=== PATIENT | male | born 1965 | race African-American/Black ===

== ENCOUNTER 2019-12-20 02:21 | Emergency (ER) | payer OTHER, BC ==
[~2019-12-20] VITALS: Ht 185.4 cm; Wt 138.0 kg
[2019-12-20 04:21] LABS: EOSINOPHILS % 0.1 % (0.0-5.0); HEMATOCRIT. 41.7 % (42.0-52.0); HEMOGLOBIN. 13.8 g/dL (14.0-18.0); LYMPHOCYTES % 8.8 % (20.0-50.0); MEAN CORPUSCULAR VOLUME 99.6 fL (80.0-94.0); MEAN PLATELET VOLUME 8.2 fl (7.4-10.4); MONOCYTES % 3.1 % (2.0-8.0); PLATELET 167 x1000/uL (130-400); RED BLOOD CELL COUNT 4.19 mill/uL (4.7-6.1); RED CELL DISTRIBUTION WIDTH 19.4 % (11.6-14.6)
[2019-12-20 04:22] LABS: CHLORIDE 107 mEq/L (98-107)
[2019-12-20 04:26] LABS: INR 1.1; PROTHROMBIN TIME 11.6 sec (9.6-11.0)
[2019-12-20 04:27] LABS: ETHANOL BLOOD < 10 mg/dL
[2019-12-20] MEDS ORDERED: ASPIRIN 325MG EC TABLET PO NR (05:00)
[2019-12-20] MEDS ORDERED: SODIUM CHLORIDE 0.9% 1,000 ML IV NR (05:00)
[2019-12-20 07:27] VITALS: BP 160/99
== END 2019-12-20 07:42 | disposition short-term general hospital (02) ==
LOC: ER 02:43 → CANBEDREQ 05:36 → ER 07:42
DX: R77.8 Other specified abnormalities of plasma proteins (principal); I49.9 Cardiac arrhythmia, unspecified
CPT/HCPCS: 36415; 71045; 80053; 80320; 83605; 83880; 84145; 84484; 85025; 93005; 99285; G0480

== ENCOUNTER 2020-01-06 16:56 | Inpatient (IN) | payer OTHER, BC ==
[~2020-01-06] VITALS: Ht 185.4 cm; Wt 139.3 kg
[2020-01-06] MEDS ORDERED: DILTIAZEM HCL 5MG/ML 5ML VIAL IV ONE (19:45)
[2020-01-06 20:36] LABS: CHLORIDE 108 mEq/L (98-107); HEMATOCRIT. 41.4 % (42.0-52.0); HEMOGLOBIN. 13.5 g/dL (14.0-18.0); MEAN CORPUSCULAR HEMOGLOBIN 32.2 pg (28.0-32.0); MEAN CORPUSCULAR VOLUME 98.7 fL (80.0-94.0); MEAN PLATELET VOLUME 8.1 fl (7.4-10.4); PLATELET 184 x1000/uL (130-400)
[2020-01-06] MEDS ORDERED: IOHEXOL-350 100 ML BOTTLE ONE (20:55)
[2020-01-06 21:02] LABS: NUCLEATED RED BLOOD CELLS 3 /100 WBC; PLATELET ESTIMATE NORMAL
[2020-01-06] MEDS ORDERED: ONDANSETRON HCL 4MG/2ML INJ IV STA (21:41)
[2020-01-06] MEDS ORDERED: MORPHINE SULFATE 4 MG/ML CPJ (NOT FOR IM USE) IV STA (21:41)
[2020-01-06] MEDS ORDERED: ASPIRIN 325MG EC TABLET PO ONE (21:45)
[2020-01-06] MEDS ORDERED: PIPERACILLIN/TAZ 3.375G PREMIX 50 ML IV NR (22:00)
[2020-01-06] MEDS ORDERED: VANCOMYCIN 1 G PREMIX 200 ML IV NR (22:00)
[2020-01-07] VITALS (10 sets, daily range): BP systolic 113–171; BP diastolic 64–125
[2020-01-07] MEDS: METOPROLOL TARTRATE 5MG/5ML VIAL IV SCH ×3 (04:12→04:59)
[2020-01-07] MEDS ORDERED: LORAZEPAM 2MG/ML CPJ IV PRN (07:00)
[2020-01-07] MEDS ORDERED: IPRATROPIUM/ALBUTEROL 0.5-3(2.5)MG/3ML NEB NEB PRN (07:00)
[2020-01-07] MEDS ORDERED: MORPHINE SULFATE 2 MG/ML CPJ (NOT FOR IM USE) IV PRN (07:00)
[2020-01-07] MEDS ORDERED: ONDANSETRON HCL 4MG/2ML INJ IV PRN (07:00)
[2020-01-07] MEDS ORDERED: CEFTRIAXONE 1 G PREMIX 50 ML IV SCH (08:00)
[2020-01-07] MEDS ORDERED: DILTIAZEM HCL 30MG TABLET PO SCH ×2 (08:00→14:00)
[2020-01-07] MEDS ORDERED: AZITHROMYCIN 500 MG TABLET PO NR (08:00)
[2020-01-07] MEDS ORDERED: FURO-151 MT (08:03)
[2020-01-07] MEDS ORDERED: P20 MT (08:03)
[2020-01-07] MEDS ORDERED: GLIP5TAB12 MT (08:03)
[2020-01-07] MEDS ORDERED: DABI75CA3 MT (08:04)
[2020-01-07] MEDS ORDERED: KCL 10MEQ/50ML PREMIX 50 ML IV NR (08:30)
[2020-01-07] MEDS ORDERED: ENOXAPARIN 30MG/0.3ML SYR SUBCUT SCH (09:00)
[2020-01-07] MEDS ORDERED: ASPIRIN 81MG EC TABLET PO SCH (09:00)
[2020-01-07] MEDS: THIAMINE HCL 100MG TABLET PO SCH (09:09)
[2020-01-07] MEDS: ENOXAPARIN 150MG/ML SYR SUBCUT SCH ×2 (09:11→21:05)
[2020-01-07] MEDS ORDERED: METOPROLOL TARTRATE 5MG/5ML VIAL IV PRN (10:00)
[2020-01-07] MEDS ORDERED: DILTIAZEM HCL 30MG TABLET PO NR (10:15)
[2020-01-07] MEDS: FUROSEMIDE 40MG/4ML VIAL IVP SCH ×2 (10:24→17:12)
[2020-01-07] MEDS: CEFTRIAXONE 1,000 MG in DEXTROSE 5% WATER 50 ML IV SCH (11:20)
[2020-01-07 11:51] LABS: HEMATOCRIT. 37.1 % (42.0-52.0); HEMOGLOBIN. 12.3 g/dL (14.0-18.0); MEAN CORPUSCULAR HEMOGLOBIN 32.3 pg (28.0-32.0); MEAN CORPUSCULAR VOLUME 97.4 fL (80.0-94.0); PLATELET 171 x1000/uL (130-400); RED BLOOD CELL COUNT 3.81 mill/uL (4.7-6.1); RED CELL DISTRIBUTION WIDTH 18.6 % (11.6-14.6)
[2020-01-07 12:11] LABS: CHLORIDE 108 mEq/L (98-107)
[2020-01-07 13:44] LABS: CLARITY URINE CLEAR (CLEAR); COLOR URINE YELLOW (YELLOW); KETONES URINE NEGATIVE (NEGATIVE); LEUKOCYTE ESTERASE URINE NEGATIVE (NEGATIVE); NITRITE URINE NEGATIVE (NEGATIVE); OCCULT BLOOD URINE TRACE (NEGATIVE); PROTEIN URINE NEGATIVE (NEGATIVE); SPECIFIC GRAVITY URINE 1.014 (1.005-1.030); UROBILINOGEN URINE 0.2 E.U./dL (0.2-1.0)
[2020-01-07 14:18] LABS: *AMPHETAMINES SCREEN URINE NEGATIVE (NEGATIVE)
[2020-01-07 14:19] LABS: *BARBITURATES SCREEN URINE NEGATIVE (NEGATIVE); *BENZODIAZEPINES SCREEN URINE NEGATIVE (NEGATIVE); *COCAINE SCREEN URINE NEGATIVE (NEGATIVE); CANNABINOID URINE SCREEN NEGATIVE (NEGATIVE); METHADONE URINE SCREEN NEGATIVE (NEGATIVE); OPIATES URINE SCREEN NEGATIVE (NEGATIVE); PHENCYCLIDINE URINE SCREEN NEGATIVE (NEGATIVE)
[2020-01-07] MEDS: DILTIAZEM HCL 60MG TABLET PO SCH ×2 (15:48→17:13)
[2020-01-07] MEDS: HYDROCODONE/ACETAMINOPHEN 5/325MG TABLET PO PRN (15:49)
[2020-01-07 16:56] LABS: PLATELET ESTIMATE NORMAL
[2020-01-07] MEDS: METOPROLOL TARTRATE 25MG TABLET PO SCH ×2 (17:13→21:04)
[2020-01-07] MEDS: ACETAMINOPHEN 325MG TABLET PO PRN (17:13)
[2020-01-07 17:48] LABS: CREATINE KINASE MB FRACTION 1.1 ng/mL (0.5-3.6)
[2020-01-07] MEDS ORDERED: DEXTROSE 50% WATER 50ML SYRINGE IV PRN (18:15)
[2020-01-07] MEDS ORDERED: IPRATROPIUM BROMIDE (0.02%) 0.5MG/2.5ML NEB HHN PRN (18:15)
[2020-01-07] MEDS: BLOOD SUGAR DIAGNOSTIC STRIP TEST SCH (20:57)
[2020-01-07] MEDS: INSULIN LISPRO 100 UNITS/ML SUBCUT SCH (21:07)
[2020-01-08] VITALS (13 sets, daily range): BP systolic 112–139; BP diastolic 45–88
[2020-01-08] MEDS: DILTIAZEM HCL 60MG TABLET PO SCH ×2 (00:04→05:36)
[2020-01-08 01:00] LABS: CREATINE KINASE MB FRACTION 1.5 ng/mL (0.5-3.6)
[2020-01-08] MEDS: ACETAMINOPHEN 325MG TABLET PO PRN ×2 (01:27→12:40)
[2020-01-08] MEDS: BLOOD SUGAR DIAGNOSTIC STRIP TEST SCH ×4 (06:40→21:52)
[2020-01-08 07:13] LABS: CHLORIDE 106 mEq/L (98-107)
[2020-01-08 07:30] LABS: BASOPHILS % 0.5 % (0.0-2.0); EOSINOPHILS % 0.5 % (0.0-5.0); HEMATOCRIT. 33.5 % (42.0-52.0); HEMOGLOBIN. 11.2 g/dL (14.0-18.0); LYMPHOCYTES % 7.6 % (20.0-50.0); MEAN CORPUSCULAR HEMOGLOBIN 32.7 pg (28.0-32.0); MEAN CORPUSCULAR VOLUME 98.1 fL (80.0-94.0); MEAN PLATELET VOLUME 8.7 fl (7.4-10.4); MONOCYTES % 4.5 % (2.0-8.0); NEUTROPHILS % 86.9 % (40.0-76.0); PLATELET 142 x1000/uL (130-400); RED BLOOD CELL COUNT 3.42 mill/uL (4.7-6.1); RED CELL DISTRIBUTION WIDTH 18.9 % (11.6-14.6)
[2020-01-08] MEDS: THIAMINE HCL 100MG TABLET PO SCH (08:13)
[2020-01-08] MEDS: INSULIN LISPRO 100 UNITS/ML SUBCUT SCH ×4 (08:13→22:00)
[2020-01-08] MEDS: ENOXAPARIN 150MG/ML SYR SUBCUT SCH ×2 (08:13→22:30)
[2020-01-08] MEDS: FUROSEMIDE 40MG/4ML VIAL IVP SCH ×2 (08:13→16:04)
[2020-01-08] MEDS: AZITHROMYCIN 250 MG TABLET PO SCH (08:13)
[2020-01-08] MEDS: METOPROLOL TARTRATE 25MG TABLET PO SCH ×2 (08:14→22:05)
[2020-01-08] MEDS: CEFTRIAXONE 1,000 MG in DEXTROSE 5% WATER 50 ML IV SCH (10:16)
[2020-01-08] MEDS: HYDROCODONE/ACETAMINOPHEN 5/325MG TABLET PO PRN (10:38)
[2020-01-08] MEDS: DILTIAZEM HCL 90MG TABLET PO SCH ×2 (12:40→17:30)
[2020-01-08] MEDS: PREDNISONE 20MG TABLET PO SCH (16:04)
[2020-01-08] MEDS: INSULIN GLARGINE UD 100 UNITS/ML SYR SUBCUT SCH (22:01)
[2020-01-09] VITALS (10 sets, daily range): BP systolic 119–158; BP diastolic 60–95
[2020-01-09] MEDS: DILTIAZEM HCL 90MG TABLET PO SCH ×4 (00:31→18:09)
[2020-01-09 06:28] LABS: INR 1.1; PROTHROMBIN TIME 11.3 sec (9.6-11.0)
[2020-01-09] MEDS: BLOOD SUGAR DIAGNOSTIC STRIP TEST SCH ×4 (06:32→21:57)
[2020-01-09] MEDS: FUROSEMIDE 40MG/4ML VIAL IVP SCH ×2 (06:41→18:06)
[2020-01-09 08:10] LABS: HIV SCREEN 4G Non Reactive (Non Reactive)
[2020-01-09] MEDS: PREDNISONE 20MG TABLET PO SCH (08:40)
[2020-01-09] MEDS: THIAMINE HCL 100MG TABLET PO SCH (08:41)
[2020-01-09] MEDS: ENOXAPARIN 150MG/ML SYR SUBCUT SCH ×2 (08:41→21:00)
[2020-01-09] MEDS: AZITHROMYCIN 250 MG TABLET PO SCH (08:41)
[2020-01-09] MEDS: METOPROLOL TARTRATE 25MG TABLET PO SCH ×2 (08:41→22:02)
[2020-01-09] MEDS: INSULIN LISPRO 100 UNITS/ML SUBCUT SCH ×4 (08:42→22:07)
[2020-01-09] MEDS ORDERED: REGADENOSON 0.4 MG/5 ML IV NR (11:00)
[2020-01-09] MEDS: CEFTRIAXONE 1,000 MG in DEXTROSE 5% WATER 50 ML IV SCH (11:20)
[2020-01-09] MEDS: INSULIN GLARGINE UD 100 UNITS/ML SYR SUBCUT SCH (11:20)
[2020-01-09] MEDS ORDERED: REGADENOSON 0.4 MG/5 ML IV ONE (13:27)
[2020-01-09] MEDS ORDERED: INSULIN GLARGINE UD 100 UNITS/ML SYR SUBCUT SCH (22:00)
[2020-01-10 00:08] VITALS: BP 139/71
[2020-01-10] MEDS: DILTIAZEM HCL 90MG TABLET PO SCH (00:12)
[2020-01-10 02:08] VITALS: BP 133/78
[2020-01-10 04:08] VITALS: BP 151/86
[2020-01-10 04:42] VITALS: BP 151/86
[2020-01-10 05:55] VITALS: BP 145/90
== END 2020-01-10 06:32 | disposition short-term general hospital (02) | DRG 871 ==
LOC: ER 16:56 → EDBEDREQ 19:37 → 3WST 01-07 02:58 → EDBEDREQDT 01-07 03:04 → EDBEDREQSVC 01-07 03:04 → EDBEDREQ 01-07 03:04 → EDBEDREQTM 01-07 03:04 → ENRESERV 01-07 03:36
PROVIDERS: ADMIT Internal Medicine Nephrology; ATTEND Internal Medicine Nephrology
DX: A41.9 Sepsis, unspecified organism (principal); J96.00 Acute respiratory failure, unspecified whether with hypoxia or hypercapnia; J18.9 Pneumonia, unspecified organism; I21.A1 Myocardial infarction type 2; I50.33 Acute on chronic diastolic (congestive) heart failure; I48.20 Chronic atrial fibrillation, unspecified; E44.0 Moderate protein-calorie malnutrition; E87.2 Acidosis; J98.11 Atelectasis; Z68.41 Body mass index [BMI] 40.0-44.9, adult; L97.329 Non-pressure chronic ulcer of left ankle with unspecified severity; D64.9 Anemia, unspecified; D86.9 Sarcoidosis, unspecified; E66.01 Morbid (severe) obesity due to excess calories; I45.10 Unspecified right bundle-branch block; Z20.828 Contact with and (suspected) exposure to other viral communicable diseases; R59.0 Localized enlarged lymph nodes; E78.49 Other hyperlipidemia; E87.8 Other disorders of electrolyte and fluid balance, not elsewhere classified; F17.200 Nicotine dependence, unspecified, uncomplicated; I11.0 Hypertensive heart disease with heart failure; E78.5 Hyperlipidemia, unspecified; E11.621 Type 2 diabetes mellitus with foot ulcer; E11.51 Type 2 diabetes mellitus with diabetic peripheral angiopathy without gangrene; S90.821A Blister (nonthermal), right foot, initial encounter; X58.XXXA Exposure to other specified factors, initial encounter; I87.8 Other specified disorders of veins; S90.822A Blister (nonthermal), left foot, initial encounter; Z79.52 Long term (current) use of systemic steroids; Z86.711 Personal history of pulmonary embolism; Z98.1 Arthrodesis status; Z71.3 Dietary counseling and surveillance; Y93.89 Activity, other specified; Y92.89 Other specified places as the place of occurrence of the external cause; Y99.8 Other external cause status
CPT/HCPCS: 36415; 71045; 71275; 78452; 80048; 80053; 80305; 81003; 82550; 82553; 82962; 83036; 83605; 83735; 83880; 84484; 85025; 85379; 87070; 87077; 87186; 87389; 87426; 93005; 93017; 93306; 93923; 96365; 97162; 97530; 99285; A9500; J0696; J1650; J1815; J1940; J2270; J2405; J2543; J2785; J3370; J3480; J3490; J7060; J7512; Q9967

== ENCOUNTER 2020-06-05 12:51 | Emergency (ER) | payer OTHER, BC ==
[~2020-06-05] VITALS: Ht 165.1 cm; Wt 105.0 kg
[2020-06-05] MEDS ORDERED: DILTIAZEM HCL 5MG/ML 5ML VIAL IV ONE (13:30)
[2020-06-05] MEDS ORDERED: FUROSEMIDE 40MG/4ML VIAL IVP ONE (13:30)
[2020-06-05 14:02] LABS: BASOPHILS % 0.3 % (0.0-2.0); EOSINOPHILS % 0.9 % (0.0-5.0); HEMATOCRIT. 39.1 % (42.0-52.0); HEMOGLOBIN. 12.6 g/dL (14.0-18.0); LYMPHOCYTES % 17.7 % (20.0-50.0); MEAN CORPUSCULAR HEMOGLOBIN 32.7 pg (28.0-32.0); MEAN CORPUSCULAR VOLUME 101.4 fL (80.0-94.0); MEAN PLATELET VOLUME 8.3 fl (7.4-10.4); MONOCYTES % 0.9 % (2.0-8.0); NEUTROPHILS % 80.2 % (40.0-76.0); PLATELET 142 x1000/uL (130-400); RED BLOOD CELL COUNT 3.85 mill/uL (4.7-6.1); RED CELL DISTRIBUTION WIDTH 18.8 % (11.6-14.6)
[2020-06-05 14:07] LABS: INR 1.1; PARTIAL THROMBOPLASTIN TIME 22.8 sec (23.4-31.0); PROTHROMBIN TIME 11.9 sec (9.6-11.0)
[2020-06-05 14:19] LABS: CHLORIDE 104 mEq/L (98-107)
[2020-06-05 16:27] VITALS: BP 130/78
== END 2020-06-05 16:43 | disposition short-term general hospital (02) ==
LOC: ER 12:51
DX: R07.89 Other chest pain (principal); R77.8 Other specified abnormalities of plasma proteins; R60.0 Localized edema; I10 Essential (primary) hypertension; E11.9 Type 2 diabetes mellitus without complications
CPT/HCPCS: 36415; 71045; 80053; 83880; 84484; 85025; 85610; 85730; 93005; 96374; 96375; 99285; J1940; J3490